=== PATIENT | male | born 1960 | race African-American/Black ===

== ENCOUNTER 2024-07-03 09:47 | Observation (INO) ==
--- NOTE | 2024-07-03 10:41 | Emergency Department Note ---
Impression & Plan Influenza A, Weakness, Elevated troponin, Thyroid nodule ED Provider Note NAME: FRANDY [id number] VERÓNICA AGE: 63 SEX: M : 1960 ARRIVES VIA: Ambulance INFORMANT: Patient, triage note ED PROVIDER(S): aZin Perales MD CHIEF COMPLAINT: Strokelike symptoms MEDICAL DECISION MAKING: Patient presents for the above. IV was established and blood work was obtained. Patient also noted to have a temp of 37 7. Sepsis or SIRS also initiated patient is 135 kg and usages were 1 L IV fluid bolus. Patient also ordered IV Ofirmev. CT head CT angio of the head and neck also ordered in light of the patient's prior history of stroke and worsening weakness of his left lower extremity. The patient's blood work shows a normal white count hemoglobin of 12.8 with normal platelet count kidney function is unremarkable initial lactate of 1.6. Troponin 161.7 without chest pain. Patient is positive for influenza A. CT head and CT angiography of the head neck to show stenoses but not significant enough to warrant intervention at this time. Patient also with associated thyroid nodule. Given these concerns I did speak with the patient and then inform the admitting hospitalist service. Patient was admitted by Dr. Kilpatrick. Discussion w/ other healthcare providers: Dr. Por inpatient medicine service Prior /Outside records reviewed: None Differential diagnosis: Infection, dehydration, metabolic abnormality, hypo/hyperglycemia, electrolyte imbalance, anemia, UTI, pneumonia, thyroid dysfunction among others were considered. Diagnostics, as interpreted by me: ECG: Sinus tachycardia, rate 121, normal intervals, normal axis no obvious ST elevations T wave inversions noted in 3 and aVF. Cardiac monitoring: An order was placed for continuous cardiac monitoring. The monitor shows a rate of 119 with tachycardic and regular rhythm. Patient was placed on pulse oximetry Medical decision rules: None Imaging studies: I informally interpreted the patient's chest x-ray does not show obvious pneumonia or pneumothorax with formal report to follow. HPI: Patient presents due to concern for possible strokelike symptoms. The patient states that sometime yesterday he was noticing having difficulty with ambulation and was listing toward the left. The patient states that around 8 PM last evening patient had tried to get up from his lower bunk and was unable to do so fell to the ground and has not gotten up since. The patient was found this morning and was referred here for further evaluation treatment. Patient states that from the fall from his lower bunk he does not complain of acute pains but states that he has had some pain in his left leg. Patient denies any chest pains or shortness of breath no nausea vomiting or diarrhea. He did not take his morning medications this morning. The patient has been an inmate for the last 45 years at [facility]. Patient was reportedly noted to have fever although does not complain of any infectious symptoms. No urinary symptoms. Per review of the outpatient referral note from the skilled nursing patient reportedly does have a prior history of right-sided CVA with left-sided weakness. PAST MEDICAL HISTORY: See Below PAST SURGICAL HISTORY: See Below SOCIAL HISTORY: See Below HOME MEDICATIONS: See Below ALLERGIES: See Below VITALS: See Below PHYSICAL EXAMINATION: GENERAL: NAD, non-toxic. EYE EXAM: Normal conjunctiva. PERRL, no anisocoria and EOM's grossly intact w/o pain. OROPHARYNX: Moist mucus membranes, grossly normal dentition. NECK: Trachea midline, no stridor. Supple, no nuchal rigidity, no adenopathy, non-tender. No signs of meningismus. FROM of the neck with good chin to chest and neck extension. LUNGS: Clear to auscultation. Normal chest wall mechanics. HEART: NSR, no MRG. ABDOMEN: Abdomen soft, non-tender, no masses, no rebound or guarding. BACK: No CVA TTP. SKIN: No rashes and no bruising. UPPER EXTREMITIES: Upper extremities are grossly normal. LOWER EXTREMITIES: Grossly normal, no edema. No obvious temperature difference in the bilateral lower extremities. Sensate throughout. Weakness noted in the left lower extremity when compared to the right, 3-5 strength noted compared to 4 out of 5 strength. NEURO EXAM: A&O x3, cranial nerves II-XII grossly intact, normal speech, moves all 4 extremities. Sensate throughout. Can [id number], no drift in his upper extremities. Weakness noted in the left lower extremity when compared to the right, 3-5 strength noted compared to 4 out of 5 strength. Past Med/Surg History Problem List (Updated 07/08/24 @ 00:58 by Zain Perales MD) Thyroid nodule (Acute) Elevated troponin (Acute) Type 2 diabetes mellitus Weakness (Acute) Influenza A (Acute) Social History Smoking Status: Former smoker Second Hand Exposure: No; Do You Dip or Chew Tobacco: No; Hx Alcohol Use: No Hx Substance Use: No Preferred Language: Palauan Communication Ability: Effective Chicken Stuffer Required: No Beliefs That Will Affect Care: None Current Living Situation: Other Current Living Situation Comment: alf Feels Safe at Home: Yes Assistive Devices: Cane Allergies Allergies Allergy/AdvReac Type Severity Reaction Status Date / Time Penicillins Allergy Unknown Listed on Unverified 07/03/24 12:53 med sheet from facility Home Meds Home Medications Medication Instructions Recorded Confirmed amlodipine 5 mg tablet 5 mg PO DAILY 07/03/24 07/03/24 clopidogrel 75 mg tablet (Plavix) 75 mg PO DAILY 07/03/24 07/03/24 duloxetine 60 mg capsule,delayed 120 mg PO DAILY 07/03/24 07/03/24 release gabapentin 400 mg capsule 800 mg PO BID 07/03/24 07/03/24 glipizide 5 mg tablet 5 mg PO DAILY 07/03/24 07/03/24 insulin glargine-yfgn 100 unit/mL 40 unit subcut BID 07/03/24 07/03/24 subcutaneous solution (Semglee (insulin glargine-yfgn)) insulin regular human 100 unit/mL 1 sliding scale dose subcut 07/03/24 07/03/24 injection solution (Novolin R USEASDIRECTD Regular U-100 Insulin) lisinopril 20 1 tab PO DAILY 07/03/24 07/03/24 mg-hydrochlorothiazide 25 mg tablet metformin 1,000 mg tablet 1,000 mg PO BID 07/03/24 07/03/24 multivitamin 1 tab PO DAILY 07/03/24 07/03/24 rosuvastatin 40 mg tablet 40 mg PO HS 07/03/24 07/03/24 Results & Data (ED) Vital Signs Vital Signs - 24 hr 07/03/24 10:13 07/03/24 10:26 Temperature 37.7 C H Temperature Source Oral Pulse Rate 120 H 119 H Respiratory Rate 18 Respiratory Effort / Characteristics Non-Labored Respiratory Depth Normal Respiratory Pattern Regular Blood Pressure 190/145 H Blood Pressure Mean 160 Pulse Oximetry 95 Oxygen Delivery Method Room Air Sepsis Recent Fever Within 48 Hours Yes Sepsis New/Unexplained Change in Mental Status N/A Sepsis Action Taken by Nursing No Action Required Home Medications Current Medication List: was personally reviewed by me Laboratory Data Attestation: I reviewed the patient's lab results. 07/05/24 07:37 07/05/24 07:37 Lab Results 07/03/24 07/03/24 07/03/24 Range/Units 10:08 11:01 12:11 WBC 5.43 (4.8-10.8) K/ul RBC 4.16 L (4.70-6.10) M/uL Hgb 12.8 L (14.0-18.0) g/dl Hct 37.6 L (42.0-52.0) % MCV 90.4 (80.0-100.0) fL MCH 30.8 (25.0-34.0) pg MCHC 34.0 (32.0-36.0) g/dL RDW Std Deviation 39.3 (36.4-46.3) fL RDW Coeff of Roxana 11.9 (11.5-14.5) % Plt Count 265 (130-400) K/uL MPV 11.4 (9.4-12.4) fL Immature Gran % (Auto) 0.6 % Neut % (Auto) 78.7 % Lymph % (Auto) 11.0 % [place] % (Auto) 8.7 % Eos % (Auto) 0.6 % Baso % (Auto) 0.4 % Neut # (Auto) 4.28 (1.40-6.50) K/uL Lymph # (Auto) 0.60 L (1.20-3.40) K/uL [place] # (Auto) 0.47 (0.11-0.59) K/uL Eos # (Auto) 0.03 (0.00-0.50) K/uL Baso # (Auto) 0.02 (0.00-0.20) K/uL Immature Gran # (Auto) 0.03 (0.01-0.20) K/uL Sodium 133 L (136-145) mmol/L Potassium 3.9 (3.5-5.1) mmol/L Chloride 99 (98-107) mmol/L Carbon Dioxide 25 (21-32) mmol/L Anion Gap 9 (3-11) BUN 11 (6-23) mg/dl Creatinine 1.13 (0.6-1.4) mg/dl Est Cr Clr Drug Dosing 87.8 ml/min eGFR 72.58 BUN/Creatinine Ratio 9.7 L (10-20) Glucose 248 H (70-99(Fasting)) mg/dl POC Glucose 240 H (70-99) mg/dl Lactate 1.6 (0.4-2.0) mmol/L Calcium 9.5 (8.6-10.3) mg/dl Magnesium 1.5 L (1.7-2.4) mg/dl Total Bilirubin 0.8 (0.2-1.0) mg/dl Direct Bilirubin 0.1 (0-0.2) mg/dl AST 40 H (13-39) U/L ALT 25 (7-52) U/L Alkaline Phosphatase 81 (34-104) U/L Troponin I High Sens 161.7 H* 158.5 H* (0-20) pg/ml Total Protein 7.4 (6.0-8.3) gm/dl Albumin 4.3 (3.4-5.0) gm/dl Procalcitonin 0.13 (0-0.5) ng/ml Adenovirus (PCR) Not Detected (NotDetected) B. pertussis DNA (PCR) Not Detected (NotDetected) B.parapertussis DNA PCR Not Detected (NotDetected) C. pneumoniae DNA (PCR) Not Detected (NotDetected) Coronavirus OC43 (PCR) Not Detected (NotDetected) Coronavirus HKU1 (PCR) Not Detected (NotDetected) Coronavirus 229E (PCR) Not Detected (NotDetected) SARS-CoV-2 (PCR) Not Detected (NotDetected) Coronavirus NL63 (PCR) Not Detected (NotDetected) Human Metapneumovir PCR Not Detected (NotDetected) Influenza A (H3) PCR DETECTED A (NotDetected) Influenza Type B (PCR) Not Detected (NotDetected) M. pneumoniae (PCR) Not Detected (NotDetected) Parainfluenza 1 (PCR) Not Detected (NotDetected) Parainfluenza 2 (PCR) Not Detected (NotDetected) Parainfluenza 3 (PCR) Not Detected (NotDetected) Parainfluenza 4 (PCR) Not Detected (NotDetected) RSV (PCR) Not Detected (NotDetected) Entero/Rhino (PCR) Not Detected (NotDetected) Administered Medications Discontinued Medications Acetaminophen (Acetaminophen 325 Mg Tab) 650 mg PO Q6H PRN PRN Reason: Fever or headache Stop: 08/02/24 14:59 Last Admin: 07/03/24 18:00 Dose: 650 mg Documented By: FAVIAN Amlodipine Besylate (Amlodipine Besylate 5 Mg Tab) 5 mg PO DAILY PATRICIA Stop: 08/03/24 08:59 Last Admin: 07/05/24 09:07 Dose: 5 mg Documented By: Admin: 07/04/24 07:26 Dose: 5 mg Documented By: FAVIAN Clopidogrel Bisulfate (Clopidogrel Bisulfate 75 Mg Tab) 75 mg PO DAILY PATRICIA Stop: 08/03/24 08:59 Last Admin: 07/05/24 09:07 Dose: 75 mg Documented By: Admin: 07/04/24 07:26 Dose: 75 mg Documented By: FAVIAN Duloxetine HCl (Duloxetine Hcl 60 Mg Cap) 120 mg PO DAILY PATRICIA Stop: 08/03/24 08:59 Last Admin: 07/05/24 09:07 Dose: 120 mg Documented By: Admin: 07/04/24 07:26 Dose: 120 mg Documented By: FAVIAN Gabapentin (Gabapentin 400 Mg Cap) 800 mg PO BID PATRICIA Stop: 08/02/24 20:59 Last Admin: 07/05/24 09:07 Dose: 800 mg Documented By: Admin: 07/04/24 21:45 Dose: 800 mg Documented By: Admin: 07/04/24 07:26 Dose: 800 mg Documented By: Admin: 07/03/24 20:49 Dose: 800 mg Documented By: JAZMIN Glipizide (Glipizide 5 Mg Tab) 5 mg PO DAILY PATRICIA Stop: 08/03/24 08:59 Last Admin: 07/05/24 09:07 Dose: 5 mg Documented By: Admin: 07/04/24 07:26 Dose: 5 mg Documented By: FAVIAN Sodium Chloride (Nss) 1,000 mls @ 999 mls/hr IV .Q1H1M PATRICIA Stop: 07/03/24 11:45 Last Infusion: 07/03/24 12:00 Dose: Infused Documented By: Admin: 07/03/24 10:54 Dose: 999 mls/hr Documented By: LIN Acetaminophen (Ofirmev) 1,000 mg in 100 mls @ 400 mls/hr IV NOW STA Stop: 07/03/24 10:47 Last Infusion: 07/03/24 11:20 Dose: Infused Documented By: Admin: 07/03/24 10:53 Dose: 400 mls/hr Documented By: LIN Sodium Chloride (Nss) 1,000 mls @ 999 mls/hr IV .Q1H1M ONE Stop: 07/03/24 13:27 Last Infusion: 07/03/24 13:42 Dose: Infused Documented By: Admin: 07/03/24 12:41 Dose: 999 mls/hr Documented By: LIN Methylprednisolone 40 mg/ (Syringe) 0.64 mls @ 1.5 mls/min IV Q8H PATRICIA Stop: 08/02/24 15:29 Last Admin: 07/04/24 07:25 Dose: 1.5 mls/min Documented By: Admin: 07/03/24 22:52 Dose: 1.5 mls/min Documented By: Admin: 07/03/24 16:30 Dose: 1.5 mls/min Documented By: FAVIAN Magnesium Sulfate/Dextrose (Magnesium Sulfate / D5w) 1 gm in 100 mls @ 50 mls/hr IV Q2H PATRICIA Stop: 07/03/24 22:29 Last Infusion: 07/03/24 22:51 Dose: Infused Documented By: Admin: 07/03/24 20:47 Dose: 50 mls/hr Documented By: Infusion: 07/03/24 20:47 Dose: Infused Documented By: Admin: 07/03/24 18:47 Dose: 50 mls/hr Documented By: FAVIAN Insulin Aspart (Insulin Aspart Per Unit Charge) 0 units SC ACHS PATRICIA Stop: 08/02/24 16:29 Last Admin: 07/05/24 12:11 Dose: 10 units Documented By: ERICA Co-signed By: UMAIR Admin: 07/05/24 09:08 Dose: 9 units Documented By: ERICA Co-signed By: BETSY Admin: 07/04/24 21:44 Dose: 8 units Documented By: JAZMIN Co-signed By: MARIAELENA Admin: 07/04/24 17:23 Dose: 10 units Documented By: FAVIAN Co-signed By: UMAIR Admin: 07/04/24 12:35 Dose: 11 units Documented By: FAVIAN Co-signed By: JACKELYN Admin: 07/04/24 09:18 Dose: 9 units Documented By: FAVIAN Co-signed By: UMAIR Admin: 07/03/24 20:51 Dose: 4 units Documented By: JAZMIN Co-signed By: DAINA Admin: 07/03/24 17:59 Dose: 4 units Documented By: FAVIAN Co-signed By: MARIANNE Insulin Glargine (Lantus Per Unit Charge) 40 units SC BID PATRICIA Stop: 08/02/24 20:59 Last Admin: 07/05/24 09:08 Dose: 40 units Documented By: ERICA Co-signed By: BETSY Admin: 07/04/24 21:44 Dose: 40 units Documented By: JAZMIN Co-signed By: MARIAELENA Admin: 07/04/24 09:18 Dose: 40 units Documented By: FAVIAN Co-signed By: UMAIR Admin: 07/03/24 20:52 Dose: 40 units Documented By: JAZMIN Co-signed By: DAINA Ioversol (Optiray 320 125ml) 118 ml IV ONCE ONE Stop: 07/03/24 11:29 Last Admin: 07/03/24 11:28 Dose: 118 ml Documented By: LEONIE Methylprednisolone (Methylprednisolone 10 Mg/Ml (For Ped Dose < 7mg)) 40 mg IV Q8H PATRICIA Stop: 08/02/24 14:59 Last Admin: 07/03/24 16:27 Dose: Not Given Documented By: FAVIAN Multivitamins (Multivitamin Tab) 1 tab PO DAILY PATRICIA Stop: 08/03/24 08:59 Last Admin: 07/05/24 09:07 Dose: 1 tab Documented By: Admin: 07/04/24 07:26 Dose: 1 tab Documented By: FAVIAN Oseltamivir Phosphate (Oseltamivir Phosphate 75 Mg Cap) 75 mg PO NOW STA; Protocol Stop: 07/03/24 12:28 Last Admin: 07/03/24 12:40 Dose: 75 mg Documented By: LIN Oseltamivir Phosphate (Oseltamivir Phosphate 75 Mg Cap) 75 mg PO BID PATRICIA; Protocol Stop: 07/08/24 20:59 Last Admin: 07/05/24 09:07 Dose: 75 mg Documented By: Admin: 07/04/24 21:46 Dose: 75 mg Documented By: Admin: 07/04/24 07:26 Dose: 75 mg Documented By: Admin: 07/03/24 20:49 Dose: 75 mg Documented By: CHINOO Rosuvastatin Calcium (Rosuvastatin Calcium 20 Mg Tab) 40 mg PO HS PATRICIA Stop: 08/02/24 20:59 Last Admin: 07/04/24 21:46 Dose: 40 mg Documented By: Admin: 07/03/24 20:51 Dose: 40 mg Documented By: CHINOO Imaging Data Radiologist's Impression: Chest X-Ray 07/03/24 10:33 XR chest 1V portable CLINICAL HISTORY: Sepsis TECHNIQUE: Single frontal radiograph of the chest was obtained. Comparison: None available at the time of this dictation. FINDINGS: No lines and tubes are seen. The cardiomediastinal silhouette is normal. The lungs are clear. No evidence of pleural effusion or pneumothorax. IMPRESSION: No acute abnormalities and in particular no radiographic evidence of pneumonia. ACT 112: Negative or not required by law. Electronically signed by: Arturo Adame M.D. 07/03/2024 11:[address] 07/03/24 10:33 CT head/brain wo con CLINICAL HISTORY: LLE weakness, listing to left, h/o TIA/CVA prior Technique: Contiguous axial CT images of the head were acquired from the base of the skull to the vertex without intravenous contrast administration. Images were viewed in brain, subdural and bone windows. Automated dose lowering techniques and/or adjustment according to patient size were utilized for this exam. Comparison: None available at the time of this dictation. Findings: Areas of decreased attenuation are present in the periventricular and subcortical white matter bilaterally consistent with small vessel ischemic disease. Generalized cerebral atrophy with commensurate enlargement of the ventricles, sulci, and cisterns is also present. There is no acute intracranial hemorrhage or evidence of acute territorial infarction. No shift of the midline structures, mass effect, or extra-axial abnormalities are shown. Atherosclerotic calcifications are present in the intracranial segments of the internal carotid arteries. Soft tissue thickening seen in the sinuses most prominently in the right maxillary sinus. The orbits appear normal. There are no acute fractures of the calvaria or scalp swelling. Impression: No acute intracranial hemorrhage, no evidence of acute territorial infarction or other acute intracranial disease process. ACT 112: Negative or not required by law. Electronically signed by: Arturo Adame M.D. 07/03/2024 11:37 AM Head CTA 07/03/24 10:33 CT angio head w con CLINICAL HISTORY: amb dysfunction, listing to L; prior CVA, L weak TECHNIQUE: CT angiography of the head was performed following intravenous administration of iodinated contrast. Coronal and sagittal MIPS were obtained from the axial data set and were submitted for review. Automated dose lowering techniques and/or adjustment according to patient size were utilized for this examination. All measurements were calculated based on NASCET criteria. Comparison: Comparison is made to CT head 07/03/2024 FINDINGS: Lungs and soft tissues are unremarkable. CTA Neck: A 3 vessel aortic arch is shown. There is no significant atherosclerotic plaque in the aortic arch or the origins of the innominate, left common carotid, and left subclavian arteries. The common carotid, external carotid, cervical segments of the internal carotid arteries, and the cervical segments of the vertebral arteries are patent without hemodynamically significant stenosis. The left vertebral artery is dominant. Thickening is seen in the right maxillary and bilateral ethmoid sinuses. IMPRESSION: No occlusion, hemodynamically significant stenosis, or dissection in the major intracranial arteries. Assessment of stenosis of the internal carotid arteries is based on NASCET criteria. ACT 112: Negative or not required by law. Electronically signed by: Arturo Adame M.D. 07/03/2024 11:53 AM Neck CTA 07/03/24 10:33 CT ANGIOGRAPHY OF THE NECK WITH CONTRAST CLINICAL HISTORY: amb dysfunction, listing to L; prior CVA, L weak COMPARISON STUDY: No previous studies for comparison. Technique: CT angiography of the carotid and vertebral arteries was obtained using Optiray and 3D reconstruction on an independent workstation. NASCET criteria was utilized. Automated exposure control was utilized for the study. A dose lowering technique was utilized adhering to the principles of ALARA. CT DOSE: 1280.71 mGy.cm Findings: Visualized portions of the lung apices are unremarkable. There are no cervical spine fractures. There is no cervical lymphadenopathy. A 3.2 x 2.6 cm right lobe thyroid nodule is incidentally noted. There is moderate plaque within the bilateral common carotid, cervical internal carotid and vertebral arteries. There is moderate stenosis of the mid right vertebral artery. There are moderate stenoses within the intracranial portions of the bilateral vertebral arteries. There is atherosclerotic plaque within bilateral carotid bifurcations without significant stenosis. Mild stenosis of the distal cervical portion of the left internal carotid artery is present. There is no dissection or aneurysm within the neck. IMPRESSION: 1. Atherosclerotic plaque within the bilateral common carotid, cervical internal carotid and vertebral arteries, as described above. No severe stenoses. Mild stenosis of the distal cervical left internal carotid artery. 2. Moderate multifocal bilateral vertebral artery stenoses, as described above. 3. 3.2 x 2.6 cm right lobe thyroid nodule. Nonemergent thyroid ultrasound is recommended for further evaluation. ACT 112: Positive. There are findings on this exam that require communication between the performing entity and the patient following Patient Test Result Information Act ([place] Act 112) guidelines. Electronically signed by: Grant Rios M.D. 07/03/2024 11:57 AM Discharge Plan Visit Data Chief Complaint: Stroke/CVA Symptoms ED Provider: Zain Perales Discharge Problem: Influenza A, Weakness, Elevated troponin, Thyroid nodule Patient Disposition: Admitted As Inpatient Discharge Instructions Interventions: ED Discharge Assessment Last Done: 07/03/24 16:06
[2024-07-03 10:52] LABS: Basophils # (auto) 0.02 K/uL (0.00-0.20); Basophils % (auto) 0.4 %; Eosinophils # (auto) 0.03 K/uL (0.00-0.50); Eosinophils % (auto) 0.6 %; Hematocrit (blood only) 37.6 % (42.0-52.0); Hemoglobin 12.8 g/dl (14.0-18.0); Immature Granulocytes # (auto) 0.03 K/uL (0.01-0.20); Immature Granulocytes % (auto) 0.6 %; Mean Corpuscular Hemoglobin 30.8 pg (25.0-34.0); Mean Corpuscular Volume 90.4 fL (80.0-100.0); Mean Platelet Volume 11.4 fL (9.4-12.4); Monocytes # (auto) 0.47 K/uL (0.11-0.59); Monocytes % (auto) 8.7 %; Neutrophils # (auto) 4.28 K/uL (1.40-6.50); Neutrophils % (auto) 78.7 %; Platelet Count 265 K/uL (130-400); RDW Coefficient of Variation 11.9 % (11.5-14.5); RDW Standard Deviation 39.3 fL (36.4-46.3); Red Blood Count 4.16 M/uL (4.70-6.10); White Blood Count 5.43 K/ul (4.8-10.8)
[2024-07-03] MEDS: ACETAMINOPHEN 1,000 MG/100 ML VIAL IV STA (10:53)
[2024-07-03] MEDS: SODIUM CHLORIDE 0.9% 1,000 ML IV SCH (10:54)
[2024-07-03 11:12] LABS: Albumin Level 4.3 gm/dl (3.4-5.0); BUN Creatinine Ratio 9.7 (10-20); Bilirubin Direct 0.1 mg/dl (0-0.2); Bilirubin,Total 0.8 mg/dl (0.2-1.0); Calcium 9.5 mg/dl (8.6-10.3); Creatinine Clr Calc Pharmacy 87.8 ml/min; Magnesium 1.5 mg/dl (1.7-2.4); Potassium 3.9 mmol/L (3.5-5.1); Total Protein 7.4 gm/dl (6.0-8.3)
[2024-07-03 11:18] LABS: Troponin I High Sensitivity 161.7 pg/ml (0-20)
[2024-07-03] MEDS: OPTIRAY 320 125ml IV ONE (11:28)
[2024-07-03 11:35] LABS: Adenovirus PCR Not Detected (NotDetected); Bordetella parapertussis PCR Not Detected (NotDetected); Bordetella pertussis PCR Not Detected (NotDetected); Chlamydia pneumoniae PCR Not Detected (NotDetected); Coronavirus 229E PCR Not Detected (NotDetected); Coronavirus CoV-2 (COVID19)PCR Not Detected (NotDetected); Coronavirus HKU1 PCR Not Detected (NotDetected); Coronavirus NL63 PCR Not Detected (NotDetected); Coronavirus OC43PCR Not Detected (NotDetected); Human Metapneumovirus PCR Not Detected (NotDetected); Influenza A (H3) PCR DETECTED (NotDetected); Influenza B PCR Not Detected (NotDetected); Mycoplasma pneumoniae PCR Not Detected (NotDetected); Parainfluenza Virus 1 PCR Not Detected (NotDetected); Parainfluenza Virus 2 PCR Not Detected (NotDetected); Parainfluenza Virus 3 PCR Not Detected (NotDetected); Parainfluenza Virus 4 PCR Not Detected (NotDetected); Respiratory Syncytial VirusPCR Not Detected (NotDetected); Rhinovirus/Enterovirus PCR Not Detected (NotDetected)
--- NOTE | 2024-07-03 11:37 | XRay Report ---
XR chest 1V portable CLINICAL HISTORY: Sepsis TECHNIQUE: Single frontal radiograph of the chest was obtained. Comparison: None available at the time of this dictation. FINDINGS: No lines and tubes are seen. The cardiomediastinal silhouette is normal. The lungs are clear. No evid ence of pleural effusion or pneumothorax. IMPRESSION: No acute abnormalities and in particular no radiographic evidence of pneumonia. ACT 112: Negative or not required by law. Electronically signed by: Arturo Adame M.D. 07/03/2024 11:36 AM
--- NOTE | 2024-07-03 11:38 | CT Scan Report ---
CT head/brain wo con CLINICAL HISTORY: LLE weakness, listing to left, h/o TIA/CVA prior Technique: Contiguous axial CT images of the head were acquired from the base of the skull to the nain abdirahman without intravenous contrast administration. Images were viewed in brain, subdural and bone windo ws. Automated dose lowering techniques and/or adjustment according to patient size were utilized for this exam. Comparison: None available at the time of this dictation. Findings: Areas of decreased attenuation are present in the periventricular and subcortical white matter bilate rally consistent with small vessel ischemic disease. Generalized cerebral atrophy with commensurate e nlargement of the ventricles, sulci, and cisterns is also present. There is no acute intracranial hem orrhage or evidence of acute territorial infarction. No shift of the midline structures, mass effect, or extra-axial abnormalities are shown. Atherosclerotic calcifications are present in the intracran ial segments of the internal carotid arteries. Soft tissue thickening seen in the sinuses most prominently in the right maxillary sinus. The orbits appear normal. There are no acute fractures of the calvaria or scalp swelling. Impression: No acute intracranial hemorrhage, no evidence of acute territorial infarction or other acute intracra nial disease process. ACT 112: Negative or not required by law. Electronically signed by: Arturo Adame M.D. 07/03/2024 11:37 AM
--- NOTE | 2024-07-03 11:54 | CT Scan Report ---
CT angio head w con CLINICAL HISTORY: amb dysfunction, listing to L; prior CVA, L weak TECHNIQUE: CT angiography of the head was performed following intravenous administration of iodinated contrast. Coronal and sagittal MIPS were obtained from the axial data set and were submitted for rev iew. Automated dose lowering techniques and/or adjustment according to patient size were utilized fo r this examination. All measurements were calculated based on NASCET criteria. Comparison: Comparison is made to CT head 07/03/2024 FINDINGS: Lungs and soft tissues are unremarkable. CTA Neck: A 3 vessel aortic arch is shown. There is no significant atherosclerotic plaque in the aor tic arch or the origins of the innominate, left common carotid, and left subclavian arteries. The co mmon carotid, external carotid, cervical segments of the internal carotid arteries, and the cervical segments of the vertebral arteries are patent without hemodynamically significant stenosis. The left vertebral artery is dominant. Thickening is seen in the right maxillary and bilateral ethmoid sinuses. IMPRESSION: No occlusion, hemodynamically significant stenosis, or dissection in the major intracranial arteries. Assessment of stenosis of the internal carotid arteries is based on NASCET criteria. ACT 112: Negative or not required by law. Electronically signed by: Arturo Adame M.D. 07/03/2024 11:53 AM
--- NOTE | 2024-07-03 12:00 | CT Scan Report ---
CT ANGIOGRAPHY OF THE NECK WITH CONTRAST CLINICAL HISTORY: amb dysfunction, listing to L; prior CVA, L weak COMPARISON STUDY: No previous studies for comparison. Technique: CT angiography of the carotid and vertebral arteries was obtained using [employer] and 3D rec onstruction on an independent workstation. NASCET criteria was utilized. Automated exposure control was utilized for the study. A dose lowering technique was utilized adhering to the principles of ALA RA. CT DOSE: 1280.71 mGy.cm Findings: Visualized portions of the lung apices are unremarkable. There are no cervical spine fractu res. There is no cervical lymphadenopathy. A 3.2 x 2.6 cm right lobe thyroid nodule is incidentally n oted. There is moderate plaque within the bilateral common carotid, cervical internal carotid and nain tebral arteries. There is moderate stenosis of the mid right vertebral artery. There are moderate karely noses within the intracranial portions of the bilateral vertebral arteries. There is atherosclerotic plaque within bilateral carotid bifurcations without significant stenosis. Mild stenosis of the dista l cervical portion of the left internal carotid artery is present. There is no dissection or aneurysm within the neck. IMPRESSION: 1. Atherosclerotic plaque within the bilateral common carotid, cervical internal carotid and vertebra l arteries, as described above. No severe stenoses. Mild stenosis of the distal cervical left interna l carotid artery. 2. Moderate multifocal bilateral vertebral artery stenoses, as described above. 3. 3.2 x 2.6 cm right lobe thyroid nodule. Nonemergent thyroid ultrasound is recommended for further evaluation. ACT 112: Positive. There are findings on this exam that require communication between the performing entity and the patient following Patient Test Result Information Act ([place] Act 112) guidelines. Electronically signed by: Grant Rios M.D. 07/03/2024 11:57 AM
[2024-07-03] MEDS: OSELTAMIVIR PHOSPHATE 75 MG CAP PO STA (12:40)
[2024-07-03] MEDS: SODIUM CHLORIDE 0.9% 1,000 ML IV ONE (12:41)
--- NOTE | 2024-07-03 13:27 | History & Physical Report ---
Date of Service July 03, 2024 Assessment & Plan (1) Influenza A: Plan: Supportive care. IV fluids. Tamiflu. Parenteral steroid therapy. (2) Weakness: Plan: Supportive care. Treat underlying influenza. No IV fluids (3) Type 2 diabetes mellitus: Plan: Basal insulin therapy. ADA diet. Sliding scale coverage (4) Elevated troponin: Plan: Mild. No evidence of acute coronary syndrome. No chest pain. No acute EKG changes (5) Thyroid nodule: Plan: Incidental finding. Probably benign. Thyroid ultrasound ordered and pending Plan Hopeful return to the [facility] within the next day or 2 History of Present Illness Chief Complaint: Weakness, fever Primary Care Provider: DULCE Wetmoresusie 63-year-old black male prisoner with a past history of CVA and chronic left leg weakness. He developed worsening generalized weakness and left leg weakness along with fever and Malays. He came to the ED for evaluation. Head CT scan is negative for new findings but he did test positive for influenza A and was mildly febrile in the ED. Head and neck CTA reveals bilateral vertebral artery stenosis with a right thyroid nodule which will be evaluated further with ultrasound. No severe carotid stenosis seen. At the time of my examination the patient is alert and oriented and will be treated with Tamiflu and parenteral steroids along with IV fluids for now. Hopefully he can return to the [facility] within the next day or 2 Allergies Allergy/AdvReac Type Severity Reaction Status Date / Time Penicillins Allergy Unknown Listed on Unverified 07/03/24 12:53 med sheet from facility Home Medications Medication Instructions Recorded Confirmed Type amlodipine 5 mg tablet 5 mg PO DAILY 07/03/24 07/03/24 History clopidogrel 75 mg tablet (Plavix) 75 mg PO DAILY 07/03/24 07/03/24 History duloxetine 60 mg capsule,delayed 120 mg PO DAILY 07/03/24 07/03/24 History release gabapentin 400 mg capsule 800 mg PO BID 07/03/24 07/03/24 History glipizide 5 mg tablet 5 mg PO DAILY 07/03/24 07/03/24 History insulin glargine-yfgn 100 unit/mL 40 unit subcut BID 07/03/24 07/03/24 History subcutaneous solution (Semglee (insulin glargine-yfgn)) insulin regular human 100 unit/mL 1 sliding scale dose subcut 07/03/24 07/03/24 History injection solution (Novolin R USEASDIRECTD Regular U-100 Insulin) lisinopril 20 1 tab PO DAILY 07/03/24 07/03/24 History mg-hydrochlorothiazide 25 mg tablet metformin 1,000 mg tablet 1,000 mg PO BID 07/03/24 07/03/24 History multivitamin 1 tab PO DAILY 07/03/24 07/03/24 History rosuvastatin 40 mg tablet 40 mg PO HS 07/03/24 07/03/24 History Past Med/Surg History Problem List (Updated 07/03/24 @ 13:26 by Humphrey Pro MD) Thyroid nodule Elevated troponin Type 2 diabetes mellitus Weakness Influenza A Social History Smoking Status: Unknown if ever smoked Preferred Language: Urdu Feels Safe at Home: Yes Review of Systems 2 Review of Systems: Constitutionalfever and chills. Malaise. Weakness ENTno blurred vision, no double vision, no epistaxis, no sore throat Respiratoryno cough, no wheezing, no shortness of breath Cardiacno palpitations, no chest pain, no syncope Eleazar nausea, vomiting, diarrhea, melena, hematochezia GUno urinary retention, no urinary incontinence, no dysuria, no hematuria Musculoskeletalno joint pain, no muscle tenderness Skinno bruising, no rashes, no pruritus Neurochronic left lower extremity weakness from old CVA. No paresthesia Psychno depression, no anxiety Physical Exam 2 Physical Exam: General-alert and oriented x3, low-grade fever while in the ED. HEENT-head atraumatic and normocephalic, pupils equal and reactive to light, extraocular muscles intact Neck-no lymphadenopathy or thyromegaly, trachea midline Chest-clear to auscultation. No rales, wheezing or rhonchi Cardiac-regular rate and rhythm, normal S1 and S2 Abdomen-normal bowel sounds, no hepatosplenomegaly Extremities-no cyanosis, clubbing, or edema Neuro-cranial nerves II through XII intact, left lower extremity weakness which is not new Psych-normal affect, normal mood Results & Data Results & Data Vital Signs (Past 12 Hours) Vital Signs Temp Pulse Resp BP Pulse Ox O2 Del Method 07/03/24 11:51 120 H 95 Room Air 07/03/24 11:51 Room Air 07/03/24 11:50 37.1 C 07/03/24 11:45 123 H 21 173/89 H 96 07/03/24 11:15 128 H 21 176/90 H 95 Room Air 07/03/24 10:59 122 H 24 175/107 H 95 07/03/24 10:26 119 H 07/03/24 10:13 37.7 C H 120 H 18 190/145 H 95 Room Air Laboratory Results 07/03/24 10:08 07/03/24 10:08 PG Care Time/CCT Total # of Minutes Spent Total Time Spent with Patient: Total time spent is greater than 50% in coordination of care (as documented) at patient's floor/unit and/or counseling patient: Coding Level of Care Code 01468 INT INP/OBS CARE 3/75MIN Diagnoses Influenza A J10.1 Weakness R53.1 Type 2 diabetes mellitus E11.9 Elevated troponin R79.89 Thyroid nodule E04.1
[2024-07-03 13:50] LABS: Appearance Urine Clear (Clear); Bacteria Urine Automated None Seen (None Seen); Bilirubin Urine Negative (Negative); Blood Urine Negative (Negative); Cast Urine Automated 0-2 /lpf (0-2); Color Urine Yellow; Epithelial Cell Urine Auto 0-2 /hpf (0-2); Glucose Urine UA 2+ (Negative); Ketones Urine Negative (Negative); Leukocyte Esterase Urine Negative (Negative); Nitrite Urine Negative (Negative); Protein Urine 2+ (Negative); RBC Urine Automated 0-2 /hpf (0-2); Specific Gravity Urine 1.021 (1.000-1.030); Urobilinogen Urine Negative (Negative); WBC Urine Automated 0-5 /hpf (0-5)
[2024-07-03] MEDS ORDERED: DEXTROSE 50% 50 ML SYRINGE IV PRN (15:00)
[2024-07-03] MEDS ORDERED: GLUCOSE 40% GEL 15 GM TUBE PO PRN (15:00)
[2024-07-03] MEDS ORDERED: GLUCAGON FOR INJ 1 MG VIAL SQ PRN (15:00)
[2024-07-03] MEDS ORDERED: CARBOHYDRATES FOR HYPOGLYCEMIA PO PRN (15:00)
[2024-07-03] MEDS ORDERED: GLUCOSE 10 TAB/TUBE PO PRN (15:00)
[2024-07-03] MEDS ORDERED: ONDANSETRON INJ 2 MG/ML 2 ML VIAL IV PRN (15:00)
--- NOTE | 2024-07-03 15:09 | Electrocardiogram Report ---
Test Reason : Blood Pressure : */* mmHG Vent. Rate : 121 BPM Atrial Rate : 121 BPM P-R Int : 158 ms QRS Dur : 82 ms QT Int : 314 ms P-R-T Axes : 65 96 7 degrees QTcB Int : 445 ms Sinus tachycardia Possible Right ventricular hypertrophy Abnormal ECG No previous ECGs available Confirmed by Dharmesh Carias ([id number]) on 07/03/2024 3:09:08 PM Referred By: Confirmed By: Dharmesh Carias
--- NOTE | 2024-07-03 15:57 | Ultrasound Report ---
ULTRASOUND SOFT TISSUE HEAD AND NECK. CLINICAL HISTORY: right nodule TECHNIQUE: Multiple real time sonographic images of the thyroid were obtained. Comparison: None available at the time of this dictation. FINDINGS: The right thyroid lobe measures 5.9 x 3.3 x 3.1 cm. The left thyroid lobe measures approxim ately 4.4 x 2.4 x 2.2 cm. The isthmus measures 0.5 cm. #Nodule 1. LOCATION: Right upper pole. Measurement: 2.3 x 2.7 x 2.3 cm. COMPOSITION: 1 point: Mixed cystic and solid. ECHOGENICITY: 1 point: Hyperechoic or isoechoic. SHAPE: 0 point: [id number]-[id number]-ipvc. MARGIN: 0 points: Smooth or Ill-defined. ECHOGENIC FOCI: 0 points: None or large comet-tail artifacts. Overall TI-RADS Score: 2, corresponding to TI-RADS category of 2/5. IMPRESSION: Right upper pole predominantly colloid nodule is seen which does not meet criteria for biopsy or cont inued follow-up. 0 points = TR 1, benign 2 points= TR 2, not suspicious 3 points= TR 3, mildly suspicious. > 1.5 cm- follow year 1, 3, 5 years. > 2.5 cm- FNA 4-6 points= TR 4, moderately suspicious. > 1 cm- follow year 1, 2, 3, 5 years. >1.5 cm- FNA 7 or more points= TR 5, highly suspicious. > 0.5 cm- follow yearly x 5 years. > 1 cm- FNA ACT 112: Negative or not required by law. Electronically signed by: Arturo Adame M.D. 07/03/2024 3:56 PM
[2024-07-03] MEDS: methylPREDNISolone 10 mg/mL (For Ped Dose < 7mg) IV SCH (16:27)
[2024-07-03] MEDS: methylPREDNISolone 40 MG in SYRINGE 0 ML IV SCH (16:30)
[2024-07-03] MEDS: INSULIN ASPART PER UNIT CHARGE SC SCH (17:59)
[2024-07-03] MEDS: ACETAMINOPHEN 325 MG TAB PO PRN (18:00)
[2024-07-03] MEDS: MAGNESIUM SULFATE / D5W 1 GM/100 ML BAG IV SCH (18:47)
[2024-07-03] MEDS: GABAPENTIN 400 MG CAP PO SCH (20:49)
[2024-07-03] MEDS: OSELTAMIVIR PHOSPHATE 75 MG CAP PO SCH (20:49)
[2024-07-03] MEDS: ROSUVASTATIN CALCIUM 20 MG TAB PO SCH (20:51)
[2024-07-03] MEDS: LANTUS PER UNIT CHARGE SC SCH (20:52)
[2024-07-04] MEDS: CLOPIDOGREL BISULFATE 75 MG TAB PO SCH (07:26)
[2024-07-04] MEDS: glipiZIDE 5 MG TAB PO SCH (07:26)
[2024-07-04] MEDS: DULoxetine HCL 60 MG CAP PO SCH (07:26)
[2024-07-04] MEDS: amLODIPine BESYLATE 5 MG TAB PO SCH (07:26)
[2024-07-04] MEDS: MULTIVITAMIN TAB PO SCH (07:26)
[2024-07-04 08:37] LABS: Anion Gap 8 (3-11); BUN Creatinine Ratio 13.4 (10-20); Blood Urea Nitrogen 13 mg/dl (6-23); Calcium 8.9 mg/dl (8.6-10.3); Carbon Dioxide 24 mmol/L (21-32); Chloride 104 mmol/L (98-107); Creatinine Clr Calc Pharmacy 94.2 ml/min; Glucose 266 mg/dl (70-99(Fasting)); Sodium 136 mmol/L (136-145)
[2024-07-04 09:42] LABS: Basophils # (auto) 0.01 K/uL (0.00-0.20); Basophils % (auto) 0.2 %; Hematocrit (blood only) 35.2 % (42.0-52.0); Hemoglobin 11.8 g/dl (14.0-18.0); Lymphocytes % (auto) 13.1 %; Mean Corpuscular Hemoglobin 31.3 pg (25.0-34.0); Mean Corpuscular Hgb Conc 33.5 g/dL (32.0-36.0); Mean Corpuscular Volume 93.4 fL (80.0-100.0); Mean Platelet Volume 11.4 fL (9.4-12.4); Monocytes # (auto) 0.25 K/uL (0.11-0.59); Monocytes % (auto) 5.5 %; Neutrophils # (auto) 3.71 K/uL (1.40-6.50); Neutrophils % (auto) 81.2 %; Platelet Count 248 K/uL (130-400); RDW Coefficient of Variation 11.9 % (11.5-14.5); RDW Standard Deviation 40.7 fL (36.4-46.3); Red Blood Count 3.77 M/uL (4.70-6.10); White Blood Count 4.57 K/ul (4.8-10.8)
--- NOTE | 2024-07-04 12:28 | Hospitalist Progress Note ---
Date of Service July 04, 2024 Assessment & Plan (1) Influenza A: Plan: Supportive care. Treated while hospitalized with IV fluids and Tamiflu. Parenteral steroid therapy started on admission has been discontinued. (2) Weakness: Plan: Supportive care. Treat underlying influenza. Physical therapy evaluation requested. (3) Type 2 diabetes mellitus: Plan: Basal insulin therapy. ADA diet. Sliding scale coverage. Mild hyperglycemia due to steroid therapy (4) Elevated troponin: Plan: Mild. No evidence of acute coronary syndrome. No chest pain. No acute EKG changes (5) Thyroid nodule: Plan: Incidental finding. Appears benign on thyroid ultrasound report. No further intervention needed at this time Plan Hopeful return to the [facility] tomorrow, July 05 Admission and Anticipated Discharge Date Admission Date: July 03, 2024 Subjective Feeling better overall. Parenteral steroid therapy has been discontinued. Thyroid ultrasound reveals a benign-appearing nodule in the right upper lobe which does not need further assessment. Mild hypomagnesemia has been corrected. Glucose is running high due to steroid therapy. Physical therapy evaluation requested. Probable return to [facility] tomorrJuly 05 Review of Systems 2 Review of Systems: Constitutionalfever and chills. Malaise. Weakness ENTno blurred vision, no double vision, no epistaxis, no sore throat Respiratoryno cough, no wheezing, no shortness of breath Cardiacno palpitations, no chest pain, no syncope Eleazar nausea, vomiting, diarrhea, melena, hematochezia GUno urinary retention, no urinary incontinence, no dysuria, no hematuria Musculoskeletalno joint pain, no muscle tenderness Skinno bruising, no rashes, no pruritus Neurochronic left lower extremity weakness from old CVA. No paresthesia Psychno depression, no anxiety Physical Exam 2 Physical Exam: General-alert and oriented x3, low-grade fever while in the ED. this has resolved HEENT-head atraumatic and normocephalic, pupils equal and reactive to light, extraocular muscles intact Neck-no lymphadenopathy or thyromegaly, trachea midline Chest-clear to auscultation. No rales, wheezing or rhonchi Cardiac-regular rate and rhythm, normal S1 and S2 Abdomen-normal bowel sounds, no hepatosplenomegaly Extremities-no cyanosis, clubbing, or edema Neuro-cranial nerves II through XII intact, left lower extremity weakness which is not new Psych-normal affect, normal mood Results & Data Results & Data Vital Signs (Past 12 Hours) Vital Signs Temp Pulse Resp BP Pulse Ox O2 Del Method 07/04/24 07:22 36.9 C 86 16 165/97 H 97 Room Air Laboratory Results 07/04/24 08:48 07/04/24 08:48 PG Care Time/CCT Total # of Minutes Spent Total Time Spent with Patient: Total time spent is greater than 50% in coordination of care (as documented) at patient's floor/unit and/or counseling patient: Coding Level of Care Code 05388 SUB INP/OBS CARE 2/35MIN Diagnoses Influenza A J10.1 Weakness R53.1 Type 2 diabetes mellitus E11.9 Elevated troponin R79.89 Thyroid nodule E04.1
[2024-07-05 07:53] LABS: Basophils # (auto) 0.03 K/uL (0.00-0.20); Basophils % (auto) 0.7 %; Eosinophils # (auto) 0.06 K/uL (0.00-0.50); Eosinophils % (auto) 1.4 %; Hematocrit (blood only) 34.7 % (42.0-52.0); Hemoglobin 11.6 g/dl (14.0-18.0); Immature Granulocytes # (auto) 0.01 K/uL (0.01-0.20); Immature Granulocytes % (auto) 0.2 %; Lymphocytes # (auto) 1.34 K/uL (1.20-3.40); Lymphocytes % (auto) 32.3 %; Mean Corpuscular Hemoglobin 31.4 pg (25.0-34.0); Mean Corpuscular Hgb Conc 33.4 g/dL (32.0-36.0); Mean Platelet Volume 11.2 fL (9.4-12.4); Monocytes # (auto) 0.53 K/uL (0.11-0.59); Monocytes % (auto) 12.8 %; Neutrophils # (auto) 2.18 K/uL (1.40-6.50); Neutrophils % (auto) 52.6 %; Platelet Count 251 K/uL (130-400); RDW Coefficient of Variation 11.9 % (11.5-14.5); RDW Standard Deviation 41.1 fL (36.4-46.3); Red Blood Count 3.69 M/uL (4.70-6.10); White Blood Count 4.15 K/ul (4.8-10.8)
[2024-07-05 08:07] LABS: BUN Creatinine Ratio 16.7 (10-20); Calcium 8.8 mg/dl (8.6-10.3); Creatinine Clr Calc Pharmacy 108.8 ml/min; Magnesium 1.9 mg/dl (1.7-2.4); Potassium 3.7 mmol/L (3.5-5.1)
--- NOTE | 2024-07-05 11:10 | Discharge Summary ---
Discharge Summary Date of Service July 05, 2024 Principal Dx & Hospital Course #1 = Principal Diagnosis (1) Influenza A: Supportive care. Treated while hospitalized with IV fluids and Tamiflu. Parenteral steroid therapy started on admission has been discontinued. (2) Weakness: Resolved back to baseline. Supportive care. Treated underlying influenza. (3) Type 2 diabetes mellitus: ADA diet. He will resume his usual diabetic regimen at discharge. Mild hyperglycemia due to steroid therapy (4) Elevated troponin: Mild. No evidence of acute coronary syndrome. No chest pain. No acute EKG changes (5) Thyroid nodule: Incidental finding. Appears benign on thyroid ultrasound report. No further intervention needed at this time Plan Discharged to [facility] today, July 05 Admission HPI Per Admitting Provider 63-year-old black male prisoner with a past history of CVA and chronic left leg weakness. He developed worsening generalized weakness and left leg weakness along with fever and Malays. He came to the ED for evaluation. Head CT scan is negative for new findings but he did test positive for influenza A and was mildly febrile in the ED. Head and neck CTA reveals bilateral vertebral artery stenosis with a right thyroid nodule which will be evaluated further with ultrasound. No severe carotid stenosis seen. At the time of my examination the patient is alert and oriented and will be treated with Tamiflu and parenteral steroids along with IV fluids for now. [facility] or 2 Discharge Exam General-alert and oriented x3, low-grade fever while in the ED. this has resolved HEENT-head atraumatic and normocephalic, pupils equal and reactive to light, extraocular muscles intact Neck-no lymphadenopathy or thyromegaly, trachea midline Chest-clear to auscultation. No rales, wheezing or rhonchi Cardiac-regular rate and rhythm, normal S1 and S2 Abdomen-normal bowel sounds, no hepatosplenomegaly Extremities-no cyanosis, clubbing, or edema Neuro-cranial nerves II through XII intact, left lower extremity weakness which is not new Psych-normal affect, normal mood Discharge Plan Discharge Items [facility]position[facility] Reason For Visit: VIRAL ILLNESS, WEAKNESS Discharge Diagnosis: Influenza A, weakness with ambulatory dysfunction, benign right thyroid nodule Activity: Resume your previous activity Non-emergency contact: Primary Care Provider Call non-emergency contact if: your symptoms worsen Follow-up/Referrals: Sebastian CARDONA [Primary Care Provider] - Diet: Carb Consistent or DM2 Addtl Attending Provider Instructions: All medications remain the same. The thyroid nodule appears to be benign and does not need any further evaluation Pending Studies at Discharge: No Stand-Alone Forms: My [facility] [employer] Skilled Items Patient informed of condition?: Yes Discharge Level of Care: Other Communicable Disease: Yes Discharge Prognosis: Stable Lines: None Urinary Catheter: No Medications and DC Order Prescriptions: Continued multivitamin [Multi-Vitamins] Tablet 1 tab PO DAILY gabapentin 400 mg Capsule 800 mg PO BID clopidogrel [Plavix] 75 mg Tablet 75 mg PO DAILY amlodipine 5 mg Tablet 5 mg PO DAILY metformin 1,000 mg Tablet 1,000 mg PO BID Novolin R Regular U100 Insulin 100 unit/mL Solution 1 sliding scale dose SUBCUT USEASDIRECTD Rx Instructions: 150-200= 2u, 201-250=4 u, 251-300=6u, 301-350=8u, 351-400=10u, 401-450=12. Call MD as needed lisinopril-hydrochlorothiazide 20-25 mg Tablet 1 tab PO DAILY glipizide 5 mg Tablet 5 mg PO DAILY rosuvastatin 40 mg Tablet 40 mg PO HS duloxetine 60 mg Capsule,Delayed Release(Dr/Ec) 120 mg PO DAILY insulin glargine-yfgn [Semglee(insulin glargine-yfgn)] 100 unit/mL Solution 40 unit SUBCUT BID Discharge Orders: Discharge Order (Routine); Ordered 07/05/24 Ordered By: Humphrey Pro Admission Data Admit Date/Time: 07/03/24 13:04 Attending Provider: Humphrey Pro Admit Provider: Humphrey Pro Primary Care Provider: Sebastian CARDONA Other Providers: Humphrey Pro Hospital Stay Data Consultations 07/03/24 12:27 ED Decision to Admit Stat Diagnostic Imagining Performed 07/03/24 10:33 CT angio head w con Stat CT angio neck with con Stat CT head/brain wo con Stat 07/03/24 15:00 US thyroid Urgent Pending Results Patient Have Any Pending Studies at Discharge: No Discharge Instructions Given to Patient (Per Discharging Provider) All medications remain the same. The thyroid nodule appears to be benign and does not need any further evaluation Total Time Total Time Spent Total Time Spent (In Minutes): 45 minutes Coding Level of Care Code 43410 INP/OBS DISCH >30 MIN Diagnoses Influenza A J10.1 Weakness R53.1 Type 2 diabetes mellitus E11.9 Elevated troponin R79.89 Thyroid nodule E04.1
== END 2024-07-05 13:59 | DRG 195 ==
LOC: SUATTDRO → ED 09:47 → INTOOBSV 13:04 → 3N 13:04